=== PATIENT | male | born 1975 | race Two or more races ===

== ENCOUNTER 2025-03-05 13:33 | Emergency (ER) | payer OTHER, SELFPAY ==
[2025-03-05 13:34] VITALS: BMI 27.4
[2025-03-05 13:44] VITALS: BP 149/90; PULSE 107; RESP 18; TEMP 36.6; O2SAT 96
--- NOTE | 2025-03-05 14:03 | XR_ITS ---
Examination: Foot, left, 3 views Technique: AP, oblique, lateral views foot, 3 views Date and time of exam: 2024, 1408 hours INDICATIONS: Injury to the foot 1 hour ago, foot pain. FINDINGS: No acute fracture No dislocation No foreign body IMPRESSION: No acute fracture
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
== END 2025-03-05 16:25 | disposition home or self-care (01) ==
PROVIDERS: Emergency Provider Nurse Practitioner Family
DX: S90.32XA Contusion of left foot, initial encounter (principal); S20.219A Contusion of unspecified front wall of thorax, initial encounter; W22.8XXA Striking against or struck by other objects, initial encounter; Y93.H2 Activity, gardening and landscaping; Y99.0 Civilian activity done for income or pay
CPT/HCPCS: 71045; 73630; 99282